=== PATIENT | female | born 1955 ===

== ENCOUNTER 2018-03-27 06:49 | Emergency (ER) | payer BC, SELFPAY ==
[2018-03-27 06:59] VITALS: BMI 32.8
[2018-03-27] MEDS ORDERED: Sodium Chloride 0.9% 1,000 ML IV STA (07:28)
--- NOTE | 2018-03-27 08:12 | ED PDOC ---
Syncope/Near Syncope/Dizziness Time Seen by Provider: 03/27/18 07:01 Chief Complaint (Nursing): Dizziness/Lightheaded Chief Complaint (Provider): Dizziness History Per: Patient History/Exam Limitations: no limitations Onset/Duration Of Symptoms: Hrs Current Symptoms Are (Timing): Still Present Associated Symptoms Preceding Syncopal Episode: Vertigo Additional Complaint(s): 62 year old female presents to the ED complaining of dizziness that started this morning but feels as if it began Wednesday. Patient reports she wasn't walking well and was spinning and and nauseous. She states she spat up multiple times of whitish saliva. Patient thinks she has vertigo. She reports she felt this way after obtaining an ultrasound doppler of the neck after telling her doctor she feels as if she is not walking properly. She further reports having upper abdominal discomfort and sensations of bowel movement but unable to have one. Denies fever, chills, dysuria, chest pain, and SOB. She indicates she works at a [employer] and was going to go to work but was unable to. Patient states she is border line diabetic but is not on any medications. PMD: Dr. Matos Past Medical History Reviewed: Historical Data, Nursing Documentation, Vital Signs Vital Signs: Last Vital Signs Temp 97.5 F L 03/27/18 06:58 Pulse 73 03/27/18 06:58 Resp 18 03/27/18 06:58 BP 157/89 H 03/27/18 06:58 Pulse Ox 96 03/27/18 06:58 - Medical History PMH: Diabetes (border line) Denies: Atrial Fibrillation, CHF, COPD, HTN, Hyperthyroidism, Chronic Kidney Disease - Surgical History Surgical History: No Surg Hx - Family History Family History: States: Hypertension - Social History Current smoker - smoking cessation education provided: No Alcohol: None Drugs: Denies - Immunization History Hx Influenza Vaccination: No - Home Medications Home Medications: Ambulatory Orders Medication Instructions Recorded Meclizine Hydrochloride [Antivert] 25 mg PO DAILY PRN #10 tab 03/06/15 Ondansetron ODT [Zofran ODT] 8 mg PO Q8 PRN #10 odt 03/06/15 Meclizine [Meclizine*] 25 mg PO Q6 #30 tab 03/27/18 Ondansetron [Zofran] 4 mg PO Q8H #9 tab 03/27/18 - Allergies Allergies/Adverse Reactions: Allergies Allergy/AdvReac Type Severity Reaction Status Date / Time No Known Allergies Allergy Verified 03/06/15 17:57 Review of Systems ROS Statement: Except As Marked, All Systems Reviewed And Found Negative Constitutional: Negative for: Fever, Chills Cardiovascular: Negative for: Chest Pain Respiratory: Negative for: Shortness of Breath Gastrointestinal: Positive for: Other (Upper abdominal discomfort) Genitourinary Female: Negative for: Dysuria Psych: Positive for: Depression, Other (vertigo) Physical Exam - Reviewed Nursing Documentation Reviewed: Yes Vital Signs Reviewed: Yes - Physical Exam Appears: Positive for: In Acute Distress (Mild moderate discomfort from dizziness) Head Exam: Positive for: ATRAUMATIC, NORMOCEPHALIC Skin: Positive for: Normal Color, Warm, Dry Eye Exam: Positive for: Other (Keeps eyes closed due to dizziness and eyes constricted at about 1-2mm bilaterally) ENT: Positive for: Normal ENT Inspection Neck: Positive for: Pain On Movement Of Neck (When neck turned from side to side, dizziness was worse but not one sided) Cardiovascular/Chest: Positive for: Regular Rate, Rhythm. Negative for: Murmur Respiratory: Positive for: Normal Breath Sounds. Negative for: Wheezing, Respiratory Distress Gastrointestinal/Abdominal: Positive for: Other (mild upper abdominal discomfort) Extremity: Positive for: Normal ROM Neurologic/Psych: Positive for: Alert (and awake), Oriented. Negative for: Motor/Sensory Deficits - Laboratory Results Result Diagrams: 03/27/18 08:10 03/27/18 08:10 - ECG O2 Sat by Pulse Oximetry: 96 (RA) Pulse Ox Interpretation: Normal - Progress Re-evaluation Time: 11:15 Condition: Re-examined, Improved Medical Decision Making Medical Decision Making: Initial Impression: Acute worsening vertigo Initial Plan: --ECG --CMP --Lipase --CBC --Antivert 25mg PO --Ativan 1mg IV --Sodium chloride 1000mL IV --Zofran 4mg IV Labs ordered and will hydrate patient. Medications givens to help symptoms and will reevaluate. Scribe Attestation: Documented by Giovany Chapin acting as a scribe for Maureen Garcia MD. Provider Scribe Attestation: All medical record entries made by the Scribe were at my direction and personally dictated by me. I have reviewed the chart and agree that the record accurately reflects my personal performance of the history, physical exam, medical decision making, and the department course for this patient. I have also personally directed, reviewed, and agree with the discharge instructions and disposition. Disposition - Clinical Impression Clinical Impression: Dizziness, Vertigo - Patient ED Disposition Is Patient to be Admitted: No Doctor Will See Patient In The: Office Counseled Patient/Family Regarding: Diagnosis, Need For Followup, Rx Given - Disposition Referrals: Tmamy Austin MD [Family Provider] - Johan Wagner [Outside] Disposition: Routine/Home Disposition Time: 11:15 Condition: IMPROVED Prescriptions: Meclizine [Meclizine*] 25 mg PO Q6 #30 tab Ondansetron [Zofran] 4 mg PO Q8H #9 tab Instructions: Vertigo (a Type of Dizziness) (DC) Forms: [employer] (Yoruba)
[2018-03-27 08:21] LABS: BASO % 0.5 % (0.0-2.0); EOS # 0.1 K/uL (0.0-0.7); HEMOGLOBIN 12.3 g/dL (12.0-16.0); LYMPH # 0.8 K/uL (1.0-4.3); LYMPH % 12.9 % (20.0-40.0); MEAN CELL VOLUME 91.6 fl (81.0-99.0); MEAN CORPUSCULAR HGB CONC 32.7 g/dL (33.0-37.0); MEAN PLATELET VOLUME 6.9 fl (7.2-11.7); MONO # 0.3 K/uL (0.0-0.8); NEUT # 4.8 K/uL (1.8-7.0); NEUT % 80.6 % (50.0-75.0); NRBC % 0.1 % (0.0-0.0); RBC 4.11 Mil/uL (3.80-5.20); RED CELL DISTRIBUTION WIDTH 18.2 % (11.5-14.5); WHITE BLOOD COUNT 5.9 K/uL (4.8-10.8)
--- NOTE | 2018-03-27 08:33 | CARD ---
APPROVED REPORT Date of service: 03/27/2018 EKG Measurement Heart [id number] <Conclusion> Normal sinus rhythm Nonspecific T wave abnormality Abnormal ECG
[2018-03-27 08:38] LABS: ALB/GLOB RATIO 1.3 (1.0-2.1); ALBUMIN 4.3 g/dL (3.5-5.0); ALT/SGPT 25 U/L (9-52); AST/SGOT 24 U/L (14-36); BLOOD UREA NITROGEN 15 mg/dl (7-17); CALCIUM 9.4 mg/dL (8.4-10.2); GFR NON-AFRICAN AMERICAN > 60; LIPASE 133 U/L (23-300)
[2018-03-27 10:21] LABS: SQUAMOUS EPITHIAL 2 /hpf (0-5); URINE BACTERIA MOD (<OCC); URINE BILIRUBIN NEGATIVE (NEGATIVE); URINE BLOOD NEGATIVE (NEGATIVE); URINE CLARITY SLIGHTY-CLOUDY (Clear); URINE COLOR YELLOW (YELLOW); URINE GLUCOSE (UA) NEG (Normal); URINE LEUKOCYTE ESTERASE TRACE Leu/uL (Negative); URINE PROTEIN NEGATIVE (NEGATIVE); URINE UROBILINOGEN 0.2-1.0 mg/dL (0.2-1.0)
[2018-03-27 12:03] VITALS: BP 115/64; PULSE 60; RESP 15; TEMP 98.4; O2SAT 98
== END 2018-03-27 12:24 | disposition home or self-care (01) ==
LOC: H.ER 06:49
DX: R42 Dizziness and giddiness (principal); E11.9 Type 2 diabetes mellitus without complications; R11.0 Nausea
CPT/HCPCS: 80053; 81003; 82948; 83690; 85025; 87086; 87181; 93005; 96361; 96374; 96375; 99285; J2060; J2405; J7030

== ENCOUNTER 2018-04-24 08:46 | Emergency (ER) | payer BC, SELFPAY ==
[2018-04-24 08:46] VITALS: BMI 32.8
[2018-04-24 08:52] VITALS: RESP 20
[2018-04-24] MEDS: Sodium Chloride 0.9% 1,000 ML IV SCH ×4 (10:50→13:13)
[2018-04-24 10:58] LABS: BASO % 0.6 % (0.0-2.0); EOS # 0.1 K/uL (0.0-0.7); EOS % 1.3 % (0.0-4.0); HEMOGLOBIN 11.6 g/dL (12.0-16.0); LYMPH % 20.3 % (20.0-40.0); MEAN CELL VOLUME 92.2 fl (81.0-99.0); MEAN CORPUSCULAR HEMOGLOBIN 29.9 pg (27.0-31.0); MEAN CORPUSCULAR HGB CONC 32.4 g/dL (33.0-37.0); MEAN PLATELET VOLUME 6.9 fl (7.2-11.7); MONO # 0.3 K/uL (0.0-0.8); MONO % 5.5 % (0.0-10.0); NEUT # 3.5 K/uL (1.8-7.0); NEUT % 72.3 % (50.0-75.0); RBC 3.89 Mil/uL (3.80-5.20); RED CELL DISTRIBUTION WIDTH 18.4 % (11.5-14.5); WHITE BLOOD COUNT 4.8 K/uL (4.8-10.8)
[2018-04-24 11:07] LABS: ALB/GLOB RATIO 1.1 (1.0-2.1); ALBUMIN 3.9 g/dL (3.5-5.0); ALT/SGPT 29 U/L (9-52); AST/SGOT 25 U/L (14-36); BLOOD UREA NITROGEN 16 mg/dl (7-17); CALCIUM 9.5 mg/dL (8.4-10.2); GFR NON-AFRICAN AMERICAN > 60
--- NOTE | 2018-04-24 11:51 | ED PDOC ---
Syncope/Near Syncope/Dizziness Time Seen by Provider: 04/24/18 09:54 Chief Complaint (Nursing): Dizziness/Lightheaded Chief Complaint (Provider): Dizziness History Per: Patient History/Exam Limitations: no limitations Onset/Duration Of Symptoms: Hrs (12), Waxing/Waning Current Symptoms Are (Timing): Intermittent Episodes Activity At Onset Of Symptoms: Lying, Standing, Change In Head Position Associated Symptoms Preceding Syncopal Episode: Vertigo, Vertigo Worse With Change In Head Position Possible Causative Factor(s): Vertigo, Decreased PO Intake Fall Associated With With Symptoms: No Severity: None Past Medical History Reviewed: Historical Data, Nursing Documentation, Vital Signs Vital Signs: Last Vital Signs Temp 97.7 F 04/24/18 08:50 Pulse 61 04/24/18 08:50 Resp 20 04/24/18 08:50 BP 167/83 H 04/24/18 08:50 Pulse Ox 98 04/24/18 08:50 - Medical History PMH: Diabetes (border line) Denies: Atrial Fibrillation, CHF, COPD, HTN, Hyperthyroidism, Chronic Kidney Disease Other PMH: Vertigo - Family History Family History: States: Hypertension - Immunization History Hx Influenza Vaccination: No - Home Medications Home Medications: Ambulatory Orders Medication Instructions Recorded Meclizine Hydrochloride [Antivert] 25 mg PO DAILY PRN #10 tab 03/06/15 Ondansetron ODT [Zofran ODT] 8 mg PO Q8 PRN #10 odt 03/06/15 Meclizine [Meclizine*] 25 mg PO Q6 #30 tab 03/27/18 Ondansetron [Zofran] 4 mg PO Q8H #9 tab 03/27/18 Nitrofurantoin Macrocrystals 100 mg PO BID #14 cap 03/29/18 [Macrobid] Meclizine HCl 25 mg PO QID #40 tablet 04/24/18 Ondansetron ODT [Zofran ODT] 4 mg PO TID #18 odt 04/24/18 Sulfamethoxazole/Trimethoprim 1 tab PO BID #20 tab 04/24/18 [Bactrim DS 800 mg-160 mg] - Allergies Allergies/Adverse Reactions: Allergies Allergy/AdvReac Type Severity Reaction Status Date / Time No Known Allergies Allergy Verified 03/06/15 17:57 Review of Systems Eyes: Negative for: Vision Change, Redness ENT: Negative for: Ear Pain, Ear Discharge, Nose Pain Cardiovascular: Negative for: Chest Pain Respiratory: Negative for: Cough, Shortness of Breath Gastrointestinal: Positive for: Nausea. Negative for: Vomiting Genitourinary Female: Negative for: Dysuria, Frequency, Incontinence Psych: Positive for: Anxiety Physical Exam - Reviewed Nursing Documentation Reviewed: Yes Vital Signs Reviewed: Yes - Physical Exam Appears: Positive for: Well, Non-toxic, No Acute Distress Head Exam: Positive for: ATRAUMATIC, NORMAL INSPECTION Skin: Positive for: Normal Color, Warm, Dry Eye Exam: Positive for: Normal appearance ENT: Positive for: Normal ENT Inspection, TM Is/Are (visible and all landmarks are visible), Hearing Is. Negative for: Nasal Congestion, Pharyngeal Erythema, Tonsillar Exudate Neck: Positive for: Normal, Painless ROM, Supple. Negative for: Decreased ROM Cardiovascular/Chest: Positive for: Regular Rate, Rhythm, Chest Non Tender. Negative for: Edema, Gallop, Bradycardia, Tachycardia Respiratory: Positive for: Normal Breath Sounds. Negative for: Decreased Breath Sounds, Accessory Muscle Use, Crackles, Rales, Rhonchi, Stridor, Wheezing Pulses-Carotid (L): 2+ Pulses-Carotid (R): 2+ Pulses-Radial (L): 2+ Pulses-Radial (R): 2+ - Laboratory Results Result Diagrams: 04/24/18 10:49 04/24/18 10:49 - ECG O2 Sat by Pulse Oximetry: 98 Medical Decision Making Medical Decision Making: Fluids and Meclazine provided as well as odonestran Pt is under the consult care of a neurologist and [facility]. Pt has also received an US of the carotid arteries indicating a 50% occulsion. Her PMD- Dr Olson -- ordered both of these diagnostics and has referred her to a neurologist. Pt will be discharged with meclazine and odonastran rx Disposition - Clinical Impression Clinical Impression: Dizziness of unknown cause, Dizzy spells, Urinary tract infection - Patient ED Disposition Is Patient to be Admitted: No Doctor Will See Patient In The: Hospital Counseled Patient/Family Regarding: Studies Performed, Diagnosis, Need For Followup - Disposition Referrals: Tammy Austin MD [Family Provider] - Disposition: Routine/Home Disposition Time: 12:26 Condition: STABLE Prescriptions: Meclizine HCl 25 mg PO QID #40 tablet Ondansetron ODT [Zofran ODT] 4 mg PO TID #18 odt Sulfamethoxazole/Trimethoprim [Bactrim DS 800 mg-160 mg] 1 tab PO BID #20 tab Forms: [employer] (Indian)
[2018-04-24 12:22] LABS: SQUAMOUS EPITHIAL 4 /hpf (0-5); URINE BACTERIA RARE (<OCC); URINE BILIRUBIN NEGATIVE (NEGATIVE); URINE BLOOD NEGATIVE (NEGATIVE); URINE CLARITY SLIGHTY-CLOUDY (Clear); URINE COLOR YELLOW (YELLOW); URINE GLUCOSE (UA) NEG (NEGATIVE); URINE LEUKOCYTE ESTERASE SMALL Leu/uL (Negative); URINE PROTEIN NEGATIVE (NEGATIVE); URINE UROBILINOGEN 0.2-1.0 mg/dL (0.2-1.0)
[2018-04-24 14:06] VITALS: BP 148/76; PULSE 67; TEMP 98.1; O2SAT 99
--- NOTE | 2018-04-25 11:38 | CARD ---
APPROVED REPORT Date of service: 04/24/2018 EKG Measurement Heart [id number] <Conclusion> Sinus bradycardia Low voltage QRS Abnormal ECG
== END 2018-04-24 14:12 | disposition home or self-care (01) ==
LOC: H.ER 08:46
DX: R42 Dizziness and giddiness (principal); N39.0 Urinary tract infection, site not specified; E11.9 Type 2 diabetes mellitus without complications
CPT/HCPCS: 80053; 81003; 84484; 85025; 93005; 96360; 99285; J7030